=== PATIENT | female | born 1950 | race Caucasian/White ===

== ENCOUNTER 2016-12-25 08:34 | Emergency (ER) | payer OTHER ==
[~2016-12-25] VITALS: Ht 172.7 cm; Wt 64.2 kg
[2016-12-25] MEDS ORDERED: ASPIRIN81 M2 PO (08:54)
[2016-12-25] MEDS ORDERED: LORAZEPAM0.5 MG PO ×2 (08:55→08:56)
[2016-12-25] MEDS ORDERED: TRAZODONE HCL50 MG PO (08:55)
[2016-12-25] MEDS ORDERED: CRANBERRY405 MG PO (08:56)
[2016-12-25] MEDS ORDERED: PRIMIDONE50 MG PO (08:56)
[2016-12-25 09:31] LABS: EOSINOPHIL (%) 1.1 % (0-5); EOSINOPHIL COUNT 0.1 K/uL (0-0.3); HEMATOCRIT 40.1 % (36.0-46.0); IMMATURE GRANULOCYTE (%) 0.3 % (0.0-0.7); INSTRUMENT ABS NEUTROPHIL CT 3.4 K/uL; LYMPHOCYTE COUNT 2.4 K/uL (1.0-2.8); MCH 29.7 PG (29.0-34.0); MCHC 32.9 G/DL (30.0-36.0); MCV 90.3 FL (83-99); MEAN PLAT.VOLUME 9.9 uM^3 (9.5-12.4); MONOCYTE (%) 9.9 % (3-12); MONOCYTE COUNT 0.6 K/uL (0-0.8); NEUTROPHIL (%) 52.1 % (45-76); NEUTROPHIL COUNT 3.4 K/uL (1.8-6.4); PLATELET COUNT 235 K/uL (156-360); RBC DIS.WIDTH-CV 12.7 % (11.8-14.6); RBC DIS.WIDTH-SD 41.7 % (39-53); RED BLOOD COUNT 4.44 M/uL (3.80-5.20); WHITE BLOOD COUNT 6.5 K/uL (4.1-10.2)
[2016-12-25 09:48] LABS: CHLORIDE 108 mEq/L (99-109); SODIUM 142 mEq/L (136-147)
[2016-12-25 09:50] LABS: GLUCOSE 96 mg/dL (70-99)
[2016-12-25 09:51] LABS: ANION GAP 7 MEQ/L (2-14)
[2016-12-25 09:54] LABS: GFR ESTIMATE (CALCULATED) > 59 mL/min/
[2016-12-25 09:55] LABS: UREA NITROGEN (BUN) 17 mg/dL (9-23)
[2016-12-25 11:57] LABS: ADD MIUA? YES; BILIRUBIN NEGATIVE; BLOOD MODERATE; COLOR YELLOW ((YELLOW)); GLUCOSE (STRIP) NEGATIVE; KETONES NEGATIVE; LEUKOCYTES NEGATIVE; NITRITE POSITIVE; PROTEIN (STRIP) NEGATIVE; SPECIFIC GRAVITY 1.015 (1.000-1.030); UROBILINOGEN 0.2 MG/DL (0.2-1.0)
[2016-12-25 12:02] LABS: BACTERIA 1+ /HPF; EPITHELIAL CELLS NONE SEEN /HPF; MUCUS 2+ /LPF; UCUL ADDED? NO; WHITE BLOOD CELLS CLUMP FEW /HPF (0-5)
[2016-12-25] MEDS ORDERED: CIPRO500 MG PO (13:13)
[2016-12-25] MEDS ORDERED: XANAX0.5 MG PO (13:14)
[2016-12-25 14:35] VITALS: BP 97/74
== END 2016-12-25 14:40 | disposition home or self-care (01) ==
LOC: EME 08:34
PROVIDERS: Emergency Medicine
DX: G30.9 Alzheimer's disease, unspecified (principal); F02.80 Dementia in other diseases classified elsewhere, unspecified severity, without behavioral disturbance, psychotic disturbance, mood disturbance, and anxiety; N39.0 Urinary tract infection, site not specified; R25.1 Tremor, unspecified; Z79.82 Long term (current) use of aspirin
CPT/HCPCS: 70450; 80048; 81003; 85025; 99281; 99284; G8978 GP CJ; G8979 GP CI; G8987 GO CM; G8988 GO CL

== ENCOUNTER 2017-05-24 17:18 | Emergency (ER) | payer OTHER ==
[~2017-05-24] VITALS: Ht 172.7 cm; Wt 60.7 kg
[~2017-05-24 17:18] MED LIST: ASPIRIN81 M2 PO; CIPRO500 MG PO; CRANBERRY405 MG PO; LORAZEPAM0.5 MG PO; PRIMIDONE50 MG PO; TRAZODONE HCL50 MG PO; XANAX0.5 MG PO
[2017-05-24 22:09] VITALS: BP 103/70
== END 2017-05-24 22:18 | disposition home or self-care (01) ==
LOC: EME 17:18
PROC: 0HQ0XZZ Repair Scalp Skin, External Approach (ICD-10-PCS; principal; 2017-05-24)
DX: S01.01XA Laceration without foreign body of scalp, initial encounter (principal); W01.198A Fall on same level from slipping, tripping and stumbling with subsequent striking against other object, initial encounter; Y93.89 Activity, other specified; Y92.199 Unspecified place in other specified residential institution as the place of occurrence of the external cause; G20 Parkinson's disease; G30.9 Alzheimer's disease, unspecified; F02.80 Dementia in other diseases classified elsewhere, unspecified severity, without behavioral disturbance, psychotic disturbance, mood disturbance, and anxiety; E78.5 Hyperlipidemia, unspecified; F32.9 Major depressive disorder, single episode, unspecified; Z79.82 Long term (current) use of aspirin; Z87.440 Personal history of urinary (tract) infections
CPT/HCPCS: 70450; 99281; 99285